=== PATIENT | female | born 1985 | race Caucasian/White ===

== ENCOUNTER 2020-02-17 09:10 | Day surgery (SDC) | payer MEDICAID ==
[~2020-02-17] VITALS: Ht 175.3 cm; Wt 155.9 kg
[2020-02-17] VITALS (9 sets, daily range): BP systolic 133–150; BP diastolic 48–95
[2020-02-17] MEDS ORDERED: normal saline 1,000 ML IV SCH (09:30)
[2020-02-17] MEDS ORDERED: diphenhydrAMINE 25mg capsule PO PRN (09:30)
[2020-02-17] MEDS ORDERED: METF500T PO (09:41)
[2020-02-17] MEDS ORDERED: BACL10TA PO (09:41)
[2020-02-17] MEDS ORDERED: OXYB5TAB16 PO (09:41)
[2020-02-17] MEDS ORDERED: allergy pill PO (09:41)
[2020-02-17] MEDS ORDERED: OMEP40CA13 PO (09:41)
[2020-02-17 10:33] LABS: BASOPHILS % (AUTO) 0.2 % (0-1); EOSINOPHILS # (AUTO) 0.2 X10'3 (0-0.9); EOSINOPHILS % (AUTO) 1.7 % (0-6); HEMATOCRIT 38.9 % (35.0-45.0); HEMOGLOBIN 12.7 g/dl (12.0-16.0); LYMPHOCYTES # (AUTO) 2.2 X10'3 (1.1-4.8); LYMPHOCYTES % (AUTO) 24.4 % (21-51); MEAN CORPUSCULAR HEMOGLOBIN 27.3 PG (27.0-31.0); MEAN CORPUSCULAR HGB CONC 32.6 g/dL (33.0-36.5); MEAN CORPUSCULAR VOLUME 83.9 FL (78-98); MEAN PLATELET VOLUME 8.4 FL (7.4-10.4); MONOCYTES # (AUTO) 0.6 X10'3 (0-0.9); MONOCYTES % (AUTO) 6.3 % (2-12); NEUTROPHILS % (AUTO) 67.4 % (42-75); PLATELET COUNT 280 X10'3 (140-440); RED BLOOD COUNT 4.63 X10'6 (4.20-5.60); WHITE BLOOD COUNT 8.9 X10'3 (4.5-11.0)
[2020-02-17 10:34] LABS: ALBUMIN 3.7 G/DL (3.4-5.0); ANION GAP 6 (8-16); BLOOD UREA NITROGEN 13 MG/DL (7-18); BUN/CREATININE RATIO 13.1 (6.6-38.0); CALCIUM 9.3 MG/DL (8.5-10.1); CHLORIDE 102 MMOL/L (99-107); CREATININE 0.99 MG/DL (0.40-0.90); GLUCOSE 146 MG/DL (70-104); POTASSIUM 4.2 MMOL/L (3.5-5.1); SODIUM 138 MMOL/L (135-145); TOTAL CARBON DIOXIDE 30.1 MMOL/L (24-32); eGFR 63 ML/MIN
[2020-02-17] MEDS ORDERED: NITR0.4T48 SL (10:55)
[2020-02-17] MEDS ORDERED: LISI10TA4 PO (10:55)
[2020-02-17] MEDS ORDERED: nitroGLYCERIN-Tridil 50MG/D5W 250 ML IV ONE (11:46)
[2020-02-17] MEDS ORDERED: iohexol 350MG/ML 100ml bottle IV ONE (11:47)
[2020-02-17] MEDS ORDERED: LIDOcaine 1% (10mg/ml)w/preservative injection 20ml MDV ONE (11:47)
[2020-02-17] MEDS ORDERED: verapamil 2.5 mg/ml inj IV ONE (11:47)
[2020-02-17] MEDS ORDERED: heparin 1,000unit/ml 10ml vial 10 ML ONE (11:47)
[2020-02-17] MEDS ORDERED: iohexol 350 MG/ML 50ML vial IV ONE (11:47)
[2020-02-17] MEDS ORDERED: proCHLORperazine 10 MG/2 ml inj ONE (12:08)
[2020-02-17] MEDS ORDERED: fentaNYL/PF 50MCG/1 ML 2ML syringe ONE ×2 (12:08→12:54)
[2020-02-17] MEDS ORDERED: midazolam 2 mg/2 ml injection ONE ×3 (12:08→12:45)
[2020-02-17] MEDS ORDERED: oxybutynin 5mg tablet PO ONE (13:30)
[2020-02-17] MEDS ORDERED: baclofen 10mg tablet PO PRN (13:30)
[2020-02-17] MEDS ORDERED: proCHLORperazine 10 MG/2 ml inj IV PRN (13:45)
[2020-02-17] MEDS ORDERED: normal saline 1000ml 1,000 ML IV SCH (13:45)
[2020-02-17] MEDS ORDERED: ondansetron/PF 4mg/2ml inj IV PRN (13:45)
[2020-02-17] MEDS ORDERED: HYDROcodone/acetaminophen 10/325mg tab PO PRN (13:45)
[2020-02-17] MEDS ORDERED: HYDROcodone/acetaminophen 5mg/325mg tablet PO PRN (13:45)
--- NOTE | 2020-02-17 13:46 | NUR ---
Contacted pt family per pt request. discussed DC time. Pt family verbalized understanding.
--- NOTE | 2020-02-17 15:09 | NUR ---
Problems reprioritized. Patient report given, questions answered & plan of care reviewed with Amelia AMOR.
== END 2020-02-17 18:00 | disposition home or self-care (01) ==
LOC: SSTAY O 09:10
PROVIDERS: ATTEND Internal Medicine Cardiovascular Disease
DX: I25.119 Atherosclerotic heart disease of native coronary artery with unspecified angina pectoris (principal); I48.91 Unspecified atrial fibrillation; I10 Essential (primary) hypertension; E78.5 Hyperlipidemia, unspecified; E66.01 Morbid (severe) obesity due to excess calories; Z68.43 Body mass index [BMI] 50.0-59.9, adult; J45.909 Unspecified asthma, uncomplicated; F41.9 Anxiety disorder, unspecified; K21.9 Gastro-esophageal reflux disease without esophagitis; M41.9 Scoliosis, unspecified; Z98.890 Other specified postprocedural states; Z90.5 Acquired absence of kidney; Z85.528 Personal history of other malignant neoplasm of kidney; Z88.2 Allergy status to sulfonamides; Z88.8 Allergy status to other drugs, medicaments and biological substances; Z91.018 Allergy to other foods; Z79.899 Other long term (current) drug therapy
CPT/HCPCS: 36415; 80048; 83735; 85025; 85610; 93005; 93458; 99152; 99153; C1760; C1769; C1894; J0780; J1644; J2001; J2250; J3010; J7030; Q0163; Q9967; A4620; A5120; A6258; J3490